=== PATIENT | female | born 1990 | race Caucasian/White ===

== ENCOUNTER 2016-12-22 17:56 | Emergency (ER) | payer SELFPAY ==
[2016-12-22 18:19] VITALS: BP 137/61
--- NOTE | 2016-12-22 18:24 | EDM.PDOC ---
ED HPI GENERAL MEDICAL PROBLEM - General Chief Complaint: Lower Extremity Injury/Pain Stated Complaint: HURT RIGHT ANKLE Time Seen by Provider: 12/22/16 18:17 Source of Information: Reports: Patient, Family (mother) History Limitations: Reports: No Limitations - History of Present Illness INITIAL COMMENTS - FREE TEXT/NARRATIVE: 26-year-old female presents to the ED with an acute inversion injury to her right ankle at occurred about 3:00 this morning. She reports she was under the influence of alcohol the time and was walking across the street to [place] to get a pie. She not exactly sure what happened but she tripped over curb suffering an inversion injury to her right ankle. She can tippytoe weight-bear. There is marked swelling of the lateral malleolus however. Also previously fractured her ankle but has no residual hardware. She scraped up her left knee and has Dmitri contusion to her right elbow as well but no evidence of bony injuries. Onset: Today Onset Date: 12/22/16 Onset Time: 03:00 Duration: Hour(s): Location: Reports: Lower Extremity, Right (right lateral ankle) Quality: Reports: Ache, Throbbing, Other Severity: Moderate Improves with: Reports: Rest ( swelling) Worsens with: Reports: Other, Movement Context: Reports: Other. Denies: Activity, Exercise, Lifting ( weightbearing) Associated Symptoms: Reports: Other ( inversion injury. contusion to the left knee and right elbow. superficial abrasions to these areas) Treatments RUBBER CURER: Reports: NSAIDS Right Ankle Pain Score (Numeric/FACES): 5 - Related Data Allergies Allergy/AdvReac Type Severity Reaction Status Date / Time grass pollen Allergy Itching Verified 12/22/16 18:13 tree and shrub pollen Allergy Itching Verified 12/22/16 18:13 Past Medical History - Past Surgical History Other HEENT Surgeries/Procedures: [place] teeth extraction Social & Family History - Tobacco Use Smoking Status *Q: Current Every Day Smoker Years of Tobacco use: 6 Packs/Tins Daily: 0.5 - Recreational Drug Use Recreational Drug Use: No - Living Situation & Occupation Living situation: Reports: Occupation: Unemployed Review of Systems - Review of Systems Review Of Systems: See Below Constitutional: Reports: No Symptoms Eyes: Reports: No Symptoms Ears: Reports: No Symptoms Nose: Reports: No Symptoms Mouth/Throat: Reports: No Symptoms Respiratory: Reports: No Symptoms Cardiovascular: Reports: No Symptoms GI/Abdominal: Reports: No Symptoms Genitourinary: Reports: No Symptoms Musculoskeletal: Reports: No Symptoms Skin: Reports: No Symptoms Neurological: Reports: No Symptoms Psychiatric: Reports: No Symptoms ED EXAM, GENERAL - Physical Exam Exam: See Below Exam Limited By: No Limitations General Appearance: Alert, WD/WN, No Apparent Distress, Other ( very talkative.) Head: Atraumatic, Normocephalic Neck: Normal Inspection, Supple, Non-Tender, Full Range of Motion Respiratory/Chest: No Respiratory Distress, No Accessory Muscle Use Peripheral Pulses: 2+: Posterior Tibial (L), Posterior Tibial (R), Dorsalis Pedis (L), Dorsalis Pedis (R) Back Exam: Normal Inspection, Full Range of Motion. No: CVA Tenderness (L), CVA Tenderness (R) Extremities: Other ( patient has a superficial abrasion to her right elbow just proximal to the olecranon process but has full unopposed range of motion of the elbow joint. similarly she suffered superficial abrasions over her left patella but there is normal patellofemoral movement and no true effusion in the knee joint. right ankle reveals marked swelling over the lateral malleolus and some pain to palpation over the no pain of the proximal femur on confirm compression. ) Neurological: Alert, Oriented, CN II-XII Intact, Normal Cognition Psychiatric: Normal Affect, Normal Mood Skin Exam: Warm, Dry, Intact, Normal Color, No Rash Course - Vital Signs Last Recorded V/S: Last Vital Signs Temp 36.6 C 12/22/16 18:13 Pulse 85 12/22/16 18:13 Resp 18 12/22/16 18:13 BP 137/61 12/22/16 18:13 Pulse Ox 99 12/22/16 18:13 - Orders/Labs/Meds Orders: Active Orders 24 hr Category Date Time Status Ankle Min 3V Rt [CR] Stat Exams 12/22/16 18:17 Taken Foot Comp Min 3V Rt [CR] Stat Exams 12/22/16 18:23 Taken - Radiology Interpretation Free Text/Narrative:: 26-year-old female attends the ED due to an inversion injury to sustained to her right ankle about 3:00 this morning. not exactly sure how it happened but she believes she tripped over a curb. She was under the influence of alcohol the time. exam reveals marked swelling of the lateral malleolus and lateral dorsal foot. there is pain over the fifth metatarsal head as well. no evidence of medial ligament injuries. pPan x-ray Rt ankle and foot - Re-Assessments/Exams Free Text/Narrative Re-Assessment/Exam: 12/22/16 18:53 x-rays of the right foot are normal. X-rays of the left ankle suggest an old fracture of the tip of the fibula. but I do not see any new fractures. therefore patient will be placed in an Dmitri wrap and a stirrup foot splint similar to an Aircast splint. this way she will can get around without crutches. Motrin 600 mg every 6 hours no safe for pain relief. ice pack to the area one half hour out of every 4 hours today and tomorrow. Departure - Departure Time of Disposition: 18:54 Disposition: Home, Self-Care 01 Condition: Fair Clinical Impression: Sprain of calcaneofibular ligament of right ankle Qualifiers: Encounter type: initial encounter Qualified Code(s): S93.411A - Sprain of calcaneofibular ligament of right ankle, initial encounter - Discharge Information Referrals: PCP,None [Primary Care Provider] - Forms: ED Department Discharge Additional Instructions: Evaluation the emergency room this evening due to an inversion injury to her right ankle at occurred earlier this morning. swelling over the distal lateral malleolus and ankle ligaments evident. x-rays of the ankle and foot were therefore carried out to rule out any bony injuries and no bony injuries were identified. injuries are to the lateral ankle ligaments. he suffered superficial abrasions to her anterior left knee and right elbow. These wounds should be cleansed daily with topical antibiotic placed such as bacitracin or Polysporin for 2-3 days to prevent secondary wound infection. Ankle to be treated with Dmitri wrap on during the day and off at night. Ice pack to the area for one half hour out of every 4 hours today and tomorrow. Placed in a stirrup brace to facilitate walking and advise use for the next 10-12 days. Motrin 600 mg every 6 hours as needed for pain relief. expect symptoms to resolve over the next 12-14 days. - My Orders Last 24 Hours: My Active Orders 12/22/16 18:17 Ankle Min 3V Rt [CR] Stat 12/22/16 18:23 Foot Comp Min 3V Rt [CR] Stat - Assessment/Plan Last 24 Hours: My Active Orders 12/22/16 18:17 Ankle Min 3V Rt [CR] Stat 12/22/16 18:23 Foot Comp Min 3V Rt [CR] Stat
--- NOTE | 2016-12-23 17:59 | CR ---
Right ankle: Four views of the right ankle were obtained. Well corticated bony density is seen off the inferior fibula compatible with old ununited fracture. Ankle mortise is symmetric. No acute fracture or other abnormality is appreciated. Impression: 1. Old fracture off the inferior fibula. 2. Nothing acute is identified on right ankle exam. Diagnostic code #2
--- NOTE | 2016-12-23 17:59 | CR ---
Right foot: Four views of the right foot were obtained. Comparison: No previous foot exam. Well-corticated bony density is again noted off the inferior fibula which was described on ankle exam. Joint spaces within the right foot are preserved. No acute fracture, dislocation or other bony abnormality is appreciated. Impression: 1. Finding off the inferior fibula described on ankle exam. 2. Right foot study is otherwise unremarkable. Diagnostic code #2
== END 2016-12-22 19:05 | disposition home or self-care (01) ==
LOC: JD.ED 17:56
DX: S93.411A Sprain of calcaneofibular ligament of right ankle, initial encounter (principal); S50.311A Abrasion of right elbow, initial encounter; S80.212A Abrasion, left knee, initial encounter; F17.210 Nicotine dependence, cigarettes, uncomplicated; X50.0XXA Overexertion from strenuous movement or load, initial encounter
CPT/HCPCS: 73610-26-RT; 73610-RT; 73630-26-RT; 73630-RT; 99283

== ENCOUNTER 2017-01-05 14:16 | Emergency (ER) | payer SELFPAY ==
[2017-01-05 14:52] VITALS: BP 108/71
[2017-01-05] MEDS ORDERED: Amoxicillin 500 MG Cap PO ONE (16:41)
[2017-01-05] MEDS ORDERED: Albuterol 6.7 GM Inhaler INH ONE (16:41)
--- NOTE | 2017-01-05 16:42 | EDM.PDOC ---
ED HPI GENERAL MEDICAL PROBLEM - General Chief Complaint: Respiratory Problem Stated Complaint: Cough Time Seen by Provider: 01/05/17 16:00 Source of Information: Reports: Patient, RN Notes Reviewed History Limitations: Reports: No Limitations - History of Present Illness INITIAL COMMENTS - FREE TEXT/NARRATIVE: 26 year old female presents to the ED with complaints of non-productive cough, runny nose, sore throat, and ear pain for the past 3 days. Her cough is dry and frequent. She denies change in voice or difficulty swallowing. She's taken ibuprofen for pain. She has a history of seasonal allergies. She denies fever, chest pain, shortness of breath, nausea, vomiting, diarrhea or abdominal pain. Chest Pain Score (Numeric/FACES): 5 - Related Data Allergies Allergy/AdvReac Type Severity Reaction Status Date / Time grass pollen Allergy Itching Verified 01/05/17 14:49 tree and shrub pollen Allergy Itching Verified 01/05/17 14:49 Home Meds: Home Meds Amoxicillin 500 mg PO BID #20 capsule 01/05/17 [Rx] Past Medical History Musculoskeletal History: Reports: Other (See Below) Other Musculoskeletal History: right ankle fracture twice - Past Surgical History Other HEENT Surgeries/Procedures: [place] teeth extraction Social & Family History - Tobacco Use Smoking Status *Q: Current Every Day Smoker Years of Tobacco use: 6 Packs/Tins Daily: 0.5 - Caffeine Use Caffeine Use: Reports: Coffee, Energy Drinks, Soda - Recreational Drug Use Recreational Drug Use: No Drug Use in Last 12 Months: Yes Recreational Drug Type: Reports: Marijuana/Hashish, Methamphetamine Other Recreational Drug Type: currently 54 days sober from drug use - Living Situation & Occupation Living situation: Reports: Occupation: Unemployed ED ROS GENERAL - Review of Systems Review Of Systems: See Below Constitutional: Reports: No Symptoms. Denies: Fever, Chills, Diaphoresis HEENT: Reports: Ear Pain, Rhinitis, Sinus Problem, Throat Pain Respiratory: Reports: Cough. Denies: Shortness of Breath, Wheezing Cardiovascular: Reports: No Symptoms. Denies: Chest Pain GI/Abdominal: Reports: No Symptoms. Denies: Abdominal Pain, Diarrhea, Nausea, Vomiting Skin: Reports: No Symptoms. Denies: Rash ED EXAM, GENERAL - Physical Exam Exam: See Below Exam Limited By: No Limitations General Appearance: Alert, WD/WN, No Apparent Distress Ear Exam: Bilateral Ear: Auricle Normal, Canal Normal, TM Dull, TM Red Nose: Normal Inspection, Normal Mucosa Throat/Mouth: Normal Inspection, Normal Oropharynx, No Airway Compromise, Other (no tonsillar erythema or exudates ) Head: Atraumatic, Normocephalic Neck: Normal Inspection, Supple, Non-Tender, Full Range of Motion. No: Lymphadenopathy (L), Lymphadenopathy (R) Respiratory/Chest: No Respiratory Distress, Lungs Clear, Normal Breath Sounds, No Accessory Muscle Use, Wheezing (right lower lobe ), Other (harsh, frequent dry cough ) Cardiovascular: Normal Peripheral Pulses, Regular Rate, Rhythm, No Murmur GI/Abdominal: Normal Bowel Sounds, Soft, Non-Tender, No Distention Neurological: Alert, Oriented, Normal Cognition Skin Exam: Warm, Dry, Intact Course - Vital Signs Last Recorded V/S: Last Vital Signs Temp 98.2 F 01/05/17 14:49 Pulse 96 01/05/17 14:49 Resp 18 01/05/17 14:49 BP 108/71 01/05/17 14:49 Pulse Ox 96 01/05/17 14:49 - Orders/Labs/Meds Orders: Active Orders 24 hr Category Date Time Status RT Post Treatment Assessment [RC] Click to Edit Care 01/05/17 16:41 Active RT Pre-Treatment Assessment [RC] Click to Edit Care 01/05/17 16:41 Active Meds: Medications Discontinued Medications Generic Name Dose Route Start Last Admin Trade Name Brian PRN Reason Stop Dose Admin Albuterol 1 gm 01/05/17 16:41 01/05/17 16:57 Proventil Hfa INH 01/05/17 16:42 2 puff ONETIME ONE Administration Amoxicillin 500 mg 01/05/17 16:41 01/05/17 16:51 Amoxil PO 01/05/17 16:42 500 mg ONETIME ONE Administration - Re-Assessments/Exams Free Text/Narrative Re-Assessment/Exam: Patient has bilateral AOM. Will start her on amoxicillin 500mg PO BID. She also has URI with scant amount of wheezing in her right lobe which cleared with coughing. Will also prescribe her an albuterol inhaler. Discharge instructions as documented. Departure - Departure Time of Disposition: 17:14 Disposition: Home, Self-Care 01 Condition: Good Clinical Impression: Otitis media Qualifiers: Otitis media type: unspecified Chronicity: acute Upper respiratory infection Qualifiers: URI type: unspecified URI Qualified Code(s): J06.9 - Acute upper respiratory infection, unspecified - Discharge Information Prescriptions: Amoxicillin 500 mg PO BID #20 capsule Instructions: Otitis Media, Adult, [id number], Upper Respiratory Infection, Adult, [id number] Referrals: PCP,None [Primary Care Provider] - Forms: ED Department Discharge Additional Instructions: Amoxicillin 500mg twice a day for 10 days Start probiotic Tylenol or Motrin as needed for pain Albuterol inhaler for shortness of breath or cough Stay well hydrated Follow-up in clinic if not improved in 3-4 days - My Orders Last 24 Hours: My Active Orders 01/05/17 16:41 RT Post Treatment Assessment [RC] Click to Edit RT Pre-Treatment Assessment [RC] Click to Edit - Assessment/Plan Last 24 Hours: My Active Orders 01/05/17 16:41 RT Post Treatment Assessment [RC] Click to Edit RT Pre-Treatment Assessment [RC] Click to Edit
== END 2017-01-05 17:20 | disposition home or self-care (01) ==
LOC: JD.ED 14:16
DX: H66.93 Otitis media, unspecified, bilateral (principal); J06.9 Acute upper respiratory infection, unspecified; F17.210 Nicotine dependence, cigarettes, uncomplicated; Z91.09 Other allergy status, other than to drugs and biological substances
CPT/HCPCS: 94664; 99283; A9270

== ENCOUNTER 2017-03-13 10:01 | Emergency (ER) | payer SELFPAY ==
[2017-03-13] MEDS ORDERED: Ibuprofen 800 MG Tab PO ONE (11:08)
[2017-03-13] MEDS ORDERED: Acetaminophen Susp 325 MG/10.15 ML UD Cup PO ONE (11:08)
--- NOTE | 2017-03-13 11:11 | EDM.PDOC ---
ED HPI GENERAL MEDICAL PROBLEM - General Chief Complaint: Lower Extremity Injury/Pain Stated Complaint: R ANKLE INJURY Time Seen by Provider: 03/13/17 10:39 Source of Information: Reports: Patient History Limitations: Reports: No Limitations - History of Present Illness INITIAL COMMENTS - FREE TEXT/NARRATIVE: 27 y/o F with R ankle injury. Stepped in a hole last evening when she went outside to smoke. Pain was still severe this morning so she came in for eval. Has pain in R outer ankle area. Sharp, worse with ambulation, better with rest. Hasn't taken anything for pain this morning. No additional injury. No knee pain. Able to ambulate. Right Ankle Pain Score (Numeric/FACES): 7 - Related Data Allergies Allergy/AdvReac Type Severity Reaction Status Date / Time grass pollen Allergy Itching Verified 03/13/17 10:25 Latex, Natural Rubber Allergy Itching Verified 03/13/17 10:45 tree and shrub pollen Allergy Itching Verified 03/13/17 10:25 Home Meds: Home Meds Hydrocodone/Acetaminophen [Hydrocodon-Acetaminophen 5-325] 1 each PO QID PRN #8 tablet 03/13/17 [Rx] Ibuprofen 800 mg PO TID PRN #40 tablet 03/13/17 [Rx] Venlafaxine [Effexor] 75 mg PO DAILY 03/13/17 [History] cloNIDine [Catapres] 0.1 mg PO BEDTIME 03/13/17 [History] hydrOXYzine HCl [Atarax] 50 mg PO Q6H PRN 03/13/17 [History] Past Medical History HEENT History: Reports: Impaired Vision Other HEENT History: wears eyeglasses. Respiratory History: Reports: Bronchitis, Recurrent Genitourinary History: Reports: UTI, Recurrent [employer]LECT[employer]CH[employer]ICIAN History: Reports: Musculoskeletal History: Reports: Other (See Below) Other Musculoskeletal History: right ankle fracture twice, L) ankle fx. Neurological History: Reports: Migraines Psychiatric History: Reports: Addiction, Anxiety, Depression - Infectious Disease History Infectious Disease History: Reports: Chicken Pox - Past Surgical History HEENT Surgical History: Reports: Tonsillectomy Other HEENT Surgeries/Procedures: [place] teeth extraction Female Surgical History: Reports: Section Social & Family History - Tobacco Use Smoking Status *Q: Current Every Day Smoker Years of Tobacco use: 10 Packs/Tins Daily: 0.5 Second Hand Smoke Exposure: No - Caffeine Use Caffeine Use: Reports: Energy Drinks - Alcohol Use Days Per Week of Alcohol Use: 1 Number of Drinks Per Day: 5 Total Drinks Per Week: 5 - Recreational Drug Use Recreational Drug Use: Yes Drug Use in Last 12 Months: Yes Recreational Drug Type: Reports: Marijuana/Hashish, Methamphetamine Other Recreational Drug Type: 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 - Living Situation & Occupation Living situation: Reports: Occupation: Unemployed Review of Systems - Review of Systems Review Of Systems: See Below Constitutional: Reports: No Symptoms Musculoskeletal: Reports: Leg Pain Skin: Denies: Wound ED EXAM, GENERAL - Physical Exam Exam: See Below Exam Limited By: No Limitations General Appearance: Alert, WD/WN, No Apparent Distress Eye Exam: Bilateral Eye: Normal Inspection Ears: Normal External Exam Nose: Normal Inspection Throat/Mouth: Normal Inspection, Normal Oropharynx Head: Atraumatic, Normocephalic Neck: Normal Inspection Respiratory/Chest: No Respiratory Distress Cardiovascular: Normal Peripheral Pulses Extremities: Other (RLE: no knee TTP or abnoramlity. No tib/fib TTP. R ankle has no effusion. +lat malleolus TTP. No bruising.No additional foot TTP or other abnormality. 2+DP pulse. Distal motor/sensation/perfusion intact.) Course - Vital Signs Last Recorded V/S: Last Vital Signs Temp 37.0 C 03/13/17 10:33 Pulse 96 03/13/17 12:10 Resp 16 03/13/17 12:10 BP 99/65 03/13/17 12:10 Pulse Ox 97 03/13/17 12:10 - Orders/Labs/Meds Orders: Active Orders 24 hr Category Date Time Status Splinting [RC] ASDIRECTED Care 03/13/17 11:48 Active Ankle Min 3V Rt [CR] Stat Exams 03/13/17 11:08 Taken Meds: Medications Discontinued Medications Generic Name Dose Route Start Last Admin Trade Name Brian PRN Reason Stop Dose Admin Acetaminophen 650 mg 03/13/17 11:08 03/13/17 11:24 Tylenol Solution PO 03/13/17 11:09 650 mg ONETIME ONE Administration Ibuprofen 800 mg 03/13/17 11:08 03/13/17 11:24 Motrin PO 03/13/17 11:09 800 mg ONETIME ONE Administration - Re-Assessments/Exams Free Text/Narrative Re-Assessment/Exam: 03/13/17 13:24 XR R ankle shows no acute abnormality. Likely sprain. Given velcro ankle splint. She has crutches at home. Departure - Departure Time of Disposition: 11:48 Disposition: Home, Self-Care 01 Clinical Impression: Ankle sprain Qualifiers: Encounter type: initial encounter Involved ligament of ankle: unspecified ligament Laterality: right Qualified Code(s): S93.401A - Sprain of unspecified ligament of right ankle, initial encounter - Discharge Information Prescriptions: Hydrocodone/Acetaminophen [Hydrocodon-Acetaminophen 5-325] 1 each PO QID PRN #8 tablet PRN Reason: Pain Ibuprofen 800 mg PO TID PRN #40 tablet PRN Reason: Pain Instructions: Ankle Sprain, [id number] Referrals: Maribell Santiago MD [Primary Care Provider] - Forms: ED Department Discharge Additional Instructions: 1. Keep ankle elevated as much as possible today and tomorrow 2. Use crutches until you can walk without significant pain or limping 3. Take ibuprofen and acetaminophen (Tylenol) for pain. Take acetaminophen according to bottle instructions. OK to take these two meds together - they work and are cleared by the body in different ways. 4. Take hydrocodone as needed for severe pain. Do not drive or operate heavy machinery while taking this medication - it may make you drowsy or confused. Take the least amount possible, and only take for severe pain. 5. Follow up with a primary doctor or orthopedics of your choice for further care if your ankle isn't much better by next week. Call [phone] to schedule with a provider here. - My Orders Last 24 Hours: My Active Orders 03/13/17 11:08 Ankle Min 3V Rt [CR] Stat 03/13/17 11:48 Splinting [RC] ASDIRECTED - Assessment/Plan Last 24 Hours: My Active Orders 03/13/17 11:08 Ankle Min 3V Rt [CR] Stat 03/13/17 11:48 Splinting [RC] ASDIRECTED
[2017-03-13 12:19] VITALS: BP 99/65
--- NOTE | 2017-03-17 10:17 | CR ---
Right ankle: Four views of the right ankle were obtained. Comparison: Prior right ankle study of 12/22/16. Ankle mortise is symmetric. Bony density compatible with old injury seen off the inferior fibula. This is stable from prior exam. No additional fracture or other bony abnormality is seen. Impression: 1. Old injury off the inferior fibula. 2. Right ankle exam is otherwise unremarkable. Diagnostic code #2
== END 2017-03-13 12:15 | disposition home or self-care (01) ==
LOC: SUPCPDRO 10:01 → JD.ED 10:01
DX: S93.401A Sprain of unspecified ligament of right ankle, initial encounter (principal); F17.210 Nicotine dependence, cigarettes, uncomplicated; Z91.040 Latex allergy status; Z91.048 Other nonmedicinal substance allergy status; Z79.899 Other long term (current) drug therapy; Z87.440 Personal history of urinary (tract) infections; X50.9XXA Other and unspecified overexertion or strenuous movements or postures, initial encounter
CPT/HCPCS: 73610; 99284; A9270; 99283

== ENCOUNTER 2018-05-06 06:35 | Emergency (ER) | payer SELFPAY ==
[2018-05-06] MEDS ORDERED: Sodium Chloride 0.9% 1,000 ML IV ONE (06:47)
[2018-05-06] MEDS ORDERED: HYDROmorphone 1 MG/ML Syringe IVPUSH ONE ×2 (06:58→07:36)
--- NOTE | 2018-05-06 07:19 | EDM.PDOC ---
ED HPI GENERAL MEDICAL PROBLEM - General Chief Complaint: Abdominal Pain Stated Complaint: ABDOMINAL PAIN AND BACK PAIN Time Seen by Provider: 05/06/18 06:53 Source of Information: Reports: Patient History Limitations: Reports: No Limitations - History of Present Illness INITIAL COMMENTS - FREE TEXT/NARRATIVE: The patient presents with severe lower abdominal pain radiating to her back. She says yesterday she had a positive home test. She then developed mild lower abdominal pain last night. This morning about 2 hours before arrival she developed severe 10/10 lower abdominal pain radiating to her back. She has some mild vaginal bleeding. She has had multiple pregnancies. She is AB4. She is unsure of her LNMP. She has hermann irregular periods. She has never had an ectopic before. She is screaming and rolling on the bed. She denies fever, chills, cough, chest pain, nausea, vomiting, dysuria or diarrhea. Onset: Sudden Duration: Hour(s): (2) Location: Reports: Abdomen, Back Quality: Reports: Sharp Severity: Severe Improves with: Reports: None Worsens with: Reports: None Associated Symptoms: Reports: No Other Symptoms Middle Abdomen Pain Score (Numeric/FACES): 10 - Related Data Allergies Allergy/AdvReac Type Severity Reaction Status Date / Time grass pollen Allergy Itching Verified 03/13/17 10:25 Latex, Natural Rubber Allergy Itching Verified 03/13/17 10:45 tree and shrub pollen Allergy Itching Verified 03/13/17 10:25 Home Meds: Home Meds Hydrocodone/Acetaminophen [Hydrocodon-Acetaminophen 5-325] 1 each PO QID PRN #8 tablet 03/13/17 [Rx] Ibuprofen 800 mg PO TID PRN #40 tablet 03/13/17 [Rx] Venlafaxine [Effexor] 75 mg PO DAILY 03/13/17 [History] cloNIDine [Catapres] 0.1 mg PO BEDTIME 03/13/17 [History] hydrOXYzine HCl [Atarax] 50 mg PO Q6H PRN 03/13/17 [History] Hydrocodone/Acetaminophen [Hydrocodon-Acetaminophen 5-325] 1 - 2 each PO Q6HR PRN #20 tablet 05/06/18 [Rx] Past Medical History HEENT History: Reports: Impaired Vision Other HEENT History: wears eyeglasses. 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 Neurological History: Reports: Migraines Psychiatric History: Reports: Addiction, Anxiety, Depression - Infectious Disease History Infectious Disease History: Reports: Chicken Pox - Past Surgical History HEENT Surgical History: Reports: Tonsillectomy Other HEENT Surgeries/Procedures: [place] teeth extraction Female Surgical History: Reports: Section Social & Family History - Tobacco Use Smoking Status *Q: Current Every Day Smoker Years of Tobacco use: 10 Packs/Tins Daily: 1 - Caffeine Use Caffeine Use: Reports: None - Recreational Drug Use Recreational Drug Use: No - Living Situation & Occupation Living situation: Reports: Occupation: Unemployed ED ROS GENERAL - Review of Systems Review Of Systems: See Below Constitutional: Reports: No Symptoms HEENT: Reports: No Symptoms Respiratory: Reports: No Symptoms Cardiovascular: Reports: No Symptoms Endocrine: Reports: No Symptoms GI/Abdominal: Reports: Abdominal Pain. Denies: Diarrhea, Nausea, Vomiting : Reports: Other (Mild vaginal bleeding) Musculoskeletal: Reports: Back Pain ED EXAM, GI/ABD - Physical Exam Exam: See Below Exam Limited By: No Limitations General Appearance: Alert, Severe Distress Ears: Normal External Exam Nose: Normal Inspection Head: Atraumatic, Normocephalic Neck: Normal Inspection Respiratory/Chest: No Respiratory Distress, Lungs Clear, Normal Breath Sounds Cardiovascular: Regular Rate, Rhythm, No Edema, No Murmur GI/Abdominal Exam: Soft, No Organomegaly, No Mass, Tender (Moderate to severe pain to the lower abdomen) Back Exam: Other (Moderate tenderness to the lower back) Extremities: Normal Inspection Neurological: Alert, Oriented, No Motor/Sensory Deficits Course - Vital Signs Last Recorded V/S: Last Vital Signs Temp 97.4 F 05/06/18 06:47 Pulse 74 05/06/18 08:12 Resp 16 05/06/18 08:12 BP 122/74 05/06/18 08:12 Pulse Ox 100 05/06/18 08:12 - Orders/Labs/Meds Orders: Active Orders 24 hr Category Date Time Status PATIENT RETYPE [BBK] Stat Lab 05/06/18 06:54 Results TYPE AND SCREEN [BBK] Stat Lab 05/06/18 06:54 Results UA W/MICROSCOPIC [URIN] Stat Lab 05/06/18 07:21 Stop Req Sodium Chloride 0.9% [Normal Saline] 1,000 ml Med 05/06/18 06:47 Active IV ONETIME Medication Orders Sodium Chloride (Normal Saline) 1,000 mls @ 150 mls/hr IV ONETIME ONE Stop: 05/06/18 13:26 Last Admin: 05/06/18 07:05 Dose: 150 mls/hr Labs: Laboratory Tests 05/06/18 05/06/18 05/06/18 Range/Units 06:54 06:54 06:54 WBC 14.46 H (3.98-10.04) K/mm3 RBC 4.22 (3.98-5.22) M/mm3 Hgb 12.9 (11.2-15.7) gm/L Hct 36.5 (34.1-44.9) % MCV 86.5 (79.4-94.8) fl MCH 30.6 (25.6-32.2) pg MCHC 35.3 (32.2-35.5) g/dl RDW Std Deviation 41.1 (36.4-46.3) fL Plt Count 341 (182-369) K/mm3 MPV 9.0 L (9.4-12.3) fl Neutrophils % (Manual) 74 H (40-60) % Band Neutrophils % 2 (0-10) % Lymphocytes % (Manual) 13 L (20-40) % Atypical Lymphs % 0 % Monocytes % (Manual) 7 (2-10) % Eosinophils % (Manual) 3 (0.7-5.8) % Basophils % (Manual) 1 (0.1-1.2) Platelet Estimate Adequate RBC Morph Comment Normal Sodium 141 (136-145) mEq/L Potassium 3.1 L (3.5-5.1) mEq/L Chloride 105 (98-107) mEq/L Carbon Dioxide 24 (21-32) mEq/L Anion Gap 15.1 H (5-15) BUN 11 (7-18) mg/dL Creatinine 0.9 (0.55-1.02) mg/dL Est Cr Clr Drug Dosing 3.46 mL/min Estimated GFR (MDRD) > 60 (>60) mL/min BUN/Creatinine Ratio 12.2 L (14-18) Glucose 120 H (74-106) mg/dL Calcium 8.9 (8.5-10.1) mg/dL Total Bilirubin 0.2 (0.2-1.0) mg/dL AST 18 (15-37) U/L ALT 26 (14-59) U/L Alkaline Phosphatase 79 (46-116) U/L C-Reactive Protein 3.0 H* (<1.0) mg/dL Total Protein 6.8 (6.4-8.2) g/dl Albumin 3.3 L (3.4-5.0) g/dl Globulin 3.5 gm/dL Albumin/Globulin Ratio 0.9 L (1-2) Lipase 125 (73-393) U/L HCG, Quant 3003.0 mIU/mL Blood Type Gel Antibody Screen 05/06/18 Range/Units 06:54 WBC (3.98-10.04) K/mm3 RBC (3.98-5.22) M/mm3 Hgb (11.2-15.7) gm/L Hct (34.1-44.9) % MCV (79.4-94.8) fl MCH (25.6-32.2) pg MCHC (32.2-35.5) g/dl RDW Std Deviation (36.4-46.3) fL Plt Count (182-369) K/mm3 MPV (9.4-12.3) fl Neutrophils % (Manual) (40-60) % Band Neutrophils % (0-10) % Lymphocytes % (Manual) (20-40) % Atypical Lymphs % % Monocytes % (Manual) (2-10) % Eosinophils % (Manual) (0.7-5.8) % Basophils % (Manual) (0.1-1.2) Platelet Estimate RBC Morph Comment Sodium (136-145) mEq/L Potassium (3.5-5.1) mEq/L Chloride (98-107) mEq/L Carbon Dioxide (21-32) mEq/L Anion Gap (5-15) BUN (7-18) mg/dL Creatinine (0.55-1.02) mg/dL Est Cr Clr Drug Dosing mL/min Estimated GFR (MDRD) (>60) mL/min BUN/Creatinine Ratio (14-18) Glucose (74-106) mg/dL Calcium (8.5-10.1) mg/dL Total Bilirubin (0.2-1.0) mg/dL AST (15-37) U/L ALT (14-59) U/L Alkaline Phosphatase (46-116) U/L C-Reactive Protein (<1.0) mg/dL Total Protein (6.4-8.2) g/dl Albumin (3.4-5.0) g/dl Globulin gm/dL Albumin/Globulin Ratio (1-2) Lipase (73-393) U/L HCG, Quant mIU/mL Blood Type B POSITIVE Gel Antibody Screen Negative Meds: Medications Generic Name Dose Route Start Last Admin Trade Name Freq PRN Reason Stop Dose Admin Sodium Chloride 1,000 mls @ 150 mls/hr 05/06/18 06:47 05/06/18 07:05 Normal Saline IV 05/06/18 13:26 150 mls/hr ONETIME ONE Administration Discontinued Medications Generic Name Dose Route Start Last Admin Trade Name Freq PRN Reason Stop Dose Admin Hydromorphone HCl 1 mg 05/06/18 06:58 05/06/18 07:05 Dilaudid IVPUSH 05/06/18 06:59 1 mg ONETIME ONE Administration Hydromorphone HCl 1 mg 05/06/18 07:36 05/06/18 08:13 Dilaudid IVPUSH 05/06/18 07:37 1 mg ONETIME ONE Administration - Re-Assessments/Exams Free Text/Narrative Re-Assessment/Exam: 05/06/18 07:20 I ordered an IV NS 1L bolus, dilaudid 1mg IV, labs, UA and a transvaginal OB US. 05/06/18 09:52 Her WBC was elevated at 14.46. Her K was low at 3.1. Her anion gap was elevated at 15.4. Her glucose was elevated at 120. Her CRP is elevated at 3. Her lipase is normal. Her HCG is elevated at 3003. Her US shows echogenic material within the endometrial cavity most likely representing blood. No intrauterine gestational sac is seen. If patient has positive test, findings are suspicious for miscarriage. Please correlate that patient's beta- HCG decreases as expected fro miscarriage. 2.2cm hypoechoic area within the right ovary which is felt to be physiologic. She feels much better after another dose of dilaudid. I will have her follow up with Dr Peters. 05/06/18 10:07 The patient is B positive. Departure - Departure Time of Disposition: 10:10 Disposition: Home, Self-Care 01 Condition: Good Clinical Impression: Spontaneous - Discharge Information *PRESCRIPTION DRUG MONITORING PROGRAM REVIEWED*: No *COPY OF PRESCRIPTION DRUG MONITORING REPORT IN PATIENT RUBEN: No Prescriptions: Hydrocodone/Acetaminophen [Hydrocodon-Acetaminophen 5-325] 1 - 2 each PO Q6HR PRN #20 tablet PRN Reason: Pain Referrals: PCP,None [Primary Care Provider] - Lia Peters MD [Physician] - 1 Week Forms: ED Department Discharge Additional Instructions: Take the hydrocodone as needed for pain. Follow up with Dr Peters within a week. Please return if the pain gets worse or if you are soaking more then a pad an hour. - My Orders Last 24 Hours: My Active Orders 05/06/18 06:47 Sodium Chloride 0.9% [Normal Saline] 1,000 ml IV ONETIME 05/06/18 06:54 PATIENT RETYPE [BBK] Stat TYPE AND SCREEN [BBK] Stat 05/06/18 07:21 UA W/MICROSCOPIC [URIN] Stat - Assessment/Plan Last 24 Hours: My Active Orders 05/06/18 06:47 Sodium Chloride 0.9% [Normal Saline] 1,000 ml IV ONETIME 05/06/18 06:54 PATIENT RETYPE [BBK] Stat TYPE AND SCREEN [BBK] Stat 05/06/18 07:21 UA W/MICROSCOPIC [URIN] Stat
[2018-05-06 08:12] VITALS: BP 122/74
--- NOTE | 2018-05-06 09:20 | US ---
First trimester obstetrical ultrasound: Multiple real-time images were obtained transabdominally and transvaginally. Uterus is slightly retroverted. Echogenic material is seen within the endometrial cavity most likely representing blood. No gestational sac is seen. Small hypoechoic area is noted within the right ovary measuring 2.2 cm which is felt to be physiologic. No adnexal abnormalities are appreciated. No free fluid is seen. Impression: 1. Echogenic material within the endometrial cavity most likely representing blood. No intrauterine gestational sac is seen. If patient has positive test, findings are suspicious for miscarriage. Please correlate that patient's beta-hCG decreases as expected for miscarriage. 2. 2.2 cm hypoechoic area within the right ovary which is felt to be physiologic. Diagnostic code #3
== END 2018-05-06 10:19 | disposition home or self-care (01) ==
LOC: JD.ED 06:35
DX: O03.9 Complete or unspecified spontaneous abortion without complication (principal); F32.9 Major depressive disorder, single episode, unspecified; F41.9 Anxiety disorder, unspecified; F17.200 Nicotine dependence, unspecified, uncomplicated; Z87.440 Personal history of urinary (tract) infections; Z90.89 Acquired absence of other organs; Z98.890 Other specified postprocedural states
CPT/HCPCS: 36415; 76817; 80053; 83690; 84702; 85007; 85027; 86140; 86850; 86900; 86901; 96361; 96374; 96376; 99284; J1170; J7040

== ENCOUNTER 2020-02-13 01:04 | Emergency (ER) | payer SELFPAY ==
[2020-02-13 01:19] VITALS: BP 134/71; PULSE 85
[2020-02-13] MEDS ORDERED: Penicillin V Potassium 500 MG Tab PO STA (01:38)
[2020-02-13] MEDS ORDERED: Naproxen 500 MG Tab PO STA (01:39)
--- NOTE | 2020-02-13 01:44 | EDM.PDOC ---
ED HPI GENERAL MEDICAL PROBLEM - General Chief Complaint: ENT Problem Stated Complaint: TOOTH PAIN AND THROWING UP Time Seen by Provider: 02/13/20 01:15 Source of Information: Reports: Patient History Limitations: Reports: No Limitations - History of Present Illness INITIAL COMMENTS - FREE TEXT/NARRATIVE: Ms. Fowler is a 30-year-old woman who now presents to the ED with dental pain. 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 She states that while her teeth were not painful, she felt they were unsightly, therefore she has been applying "Instant Smile" - essentially a putty or glue - for the past year, to help improve the appearance. No recent fever. No recent oral drainage. The patient states that she has been taking Tylenol and ibuprofen for her discomfort. She states that she last saw a Dentist about 1 year ago. Here in the ED, the patient is found to be hemodynamically stable, afebrile, saturating 94% on room air. Other than her dental pain, the patient denies having a recent fever, chills, sore throat, ear pain, nasal or sinus congestion, cough, dyspnea, chest pain, palpitations, nausea, vomiting, constipation, diarrhea, abdominal pain, urinary symptoms, recent weight gain or weight loss, recent bloody bowel movements or black bowel movements, recent joint aches, headaches, or rashes. The patient does not have a PCP or a Dentist. Treatments DEPORTATION OFFICER: Reports: Acetaminophen Other Treatments DEPORTATION OFFICER: 2129 Tooth/Teeth Pain Score (Numeric/FACES): 4 - Related Data Allergies Allergy/AdvReac Type Severity Reaction Status Date / Time grass pollen Allergy Itching Verified 02/13/20 01:20 Latex, Natural Rubber Allergy Itching Verified 02/13/20 01:20 tree and shrub pollen Allergy Itching Verified 02/13/20 01:20 Home Meds: Home Meds . [No Known Home Meds] 02/13/20 [History] Past Medical History HEENT History: Reports: Impaired Vision (wears glasses) Musculoskeletal History: Reports: Fracture (bilateral ankles) Psychiatric History: Reports: Addiction (methamphetamine), Anxiety (untreated), Depression (untreated) - Infectious Disease History Infectious Disease History: Reports: Chicken Pox - Past Surgical History HEENT Surgical History: Reports: Adenoidectomy, Oral Surgery (dental extractions), Tonsillectomy Female Surgical History: Reports: Section (x 1) Social & Family History - Family History Family Medical History: Noncontributory - Tobacco Use Tobacco Use Status *Q: Current Every Day Tobacco User Years of Tobacco use: 18 Packs/Tins Daily: 0.5 Packs/Tins Daily Comment: Down from 1 ppd - Caffeine Use Caffeine Use: Reports: Coffee, Energy Drinks, Soda - Alcohol Use Alcohol Use History: Yes Alcohol Use Frequency: Socially (occasionally to excess) - Recreational Drug Use Recreational Drug Use: Yes Drug Use in Last 12 Months: No Recreational Drug Type: Reports: Marijuana/Hashish (last smoked 03/12/2018), Methamphetamine (last smoked 03/12/2018) - Living Situation & Occupation Living situation: Reports: (), with Significant Other (Boyfriend), with Family (10 yr old daughter) Occupation: Employed ([email or web address]) ED ROS ENT - Review of Systems Review Of Systems: Comprehensive ROS is negative, except as noted in HPI. ED EXAM, ENT - Physical Exam Exam: See Below Exam Limited By: No Limitations General Appearance: Alert, WD/WN, No Apparent Distress Eye Exam: Bilateral Eye: EOMI, Normal Inspection Ears: Normal External Exam, Normal Canal, Hearing Grossly Normal, Normal TMs Nose: Normal Inspection, Normal Mucousa, No Blood Mouth/Throat: Normal Lips, Normal Oropharynx, Other (Teeth #1, 2 absent. Tooth #3 with medial decay and an amalgam filling. Tooth #4 with anterolateral decay. Tooth #7 (the tooth of concern) decayed to the gingiva, with surrounding gingival inflammation. No pointing. Teeth numbers 8, 9 glued together. Tooth #13, 14 with amalgam fillings. Tooth #15, 16 absent. Tooth #17, 18, 19, 20 absent. Tooth #30, 31, 32 absent.) Head: Atraumatic, Normocephalic Neck: Normal Inspection, Supple, Non-Tender, Full Range of Motion. No: Lymphadenopathy (L), Lymphadenopathy (R) Course - Vital Signs Last Recorded V/S: Last Vital Signs Temp 36.7 C 10/25/20 01:13 Pulse 85 02/13/20 01:13 Resp 16 02/13/20 01:13 BP 134/71 02/13/20 01:13 Pulse Ox 94 L 02/13/20 01:13 - Orders/Labs/Meds Meds: Medications Discontinued Medications Generic Name Dose Route Start Last Admin Trade Name Brian PRN Reason Stop Dose Admin Naproxen 500 mg 02/13/20 01:39 02/13/20 01:47 Naprosyn PO 02/13/20 01:40 500 mg ONETIME STA Administration Ondansetron HCl 4 mg 02/13/20 01:45 02/13/20 01:48 Zofran Odt PO 02/13/20 01:46 4 mg ONETIME ONE Administration Penicillin V Potassium 500 mg 02/13/20 01:38 02/13/20 01:47 Veetids PO 02/13/20 01:39 500 mg ONETIME STA Administration - Re-Assessments/Exams Free Text/Narrative Re-Assessment/Exam: 02/13/20 01:38 As above, the patient developed upper incisor pain, along with nausea and vomiting, Friday morning. On examination, tooth #7 is decayed to the gingiva, with associated gingival swelling. This is most likely cause of her discomfort. I will start her on penicillin, naproxen, and Zofran, and submit [facility]'s prescriptions for all 3. Most importantly, however, the patient needs to see a Dentist within the next 10 days. Departure - Departure Time of Disposition: :39 Disposition: Home, Self-Care 01 Condition: Good Clinical Impression: Dentalgia, Dental infection - Discharge Information *PRESCRIPTION DRUG MONITORING PROGRAM REVIEWED*: Not Applicable *COPY OF PRESCRIPTION DRUG MONITORING REPORT IN PATIENT RUBEN: Not Applicable Instructions: Dental Abscess, [id number], Acute Pain, Adult Referrals: PCP,None [Primary Care Provider] - Forms: ED Department Discharge Additional Instructions: You were seen in the emergency room after developing upper midline dental pain with nausea and vomiting on Friday morning. On examination, you have significant decay of teeth #3 and 4, with decay of tooth #7 down to the gumline. It is likely tooth #7 that is causing your most pain. There may be an infection at that site. You have been started on the antibiotic penicillin, along with the pain medicine naproxen and the anti-nausea medicine Zofran. Prescriptions for each of these have been provided to you. Take 1 tablet of penicillin every 6 hours, as prescribed. Finish the entire prescription unless told otherwise by a dentist. Take 1 tablet of naproxen every 12 hours, with food, as needed for discomfort. You may dissolve 1 tablet of Zofran on your tongue up to every 8 hours, as needed for nausea/vomiting. As discussed, it is very important that you follow-up with a dentist. This problem will not resolve itself with medicines. If any other problems, please do not hesitate to return to the ER. Sepsis Event Note (ED) - Evaluation Sepsis Screening Result: No Definite Risk - Focused Exam Vital Signs: Vital Signs Temp Pulse Resp BP Pulse Ox 02/13/20 01:13 36.7 C 85 16 134/71 94 L
[2020-02-13] MEDS ORDERED: Ondansetron 4 MG Tab.DIS PO ONE (01:45)
== END 2020-02-13 02:16 | disposition home or self-care (01) ==
LOC: JD.ED 01:04
DX: K04.7 Periapical abscess without sinus (principal); K02.9 Dental caries, unspecified; R11.2 Nausea with vomiting, unspecified; F17.210 Nicotine dependence, cigarettes, uncomplicated; Z91.040 Latex allergy status; Z91.048 Other nonmedicinal substance allergy status
CPT/HCPCS: 99282; A9270; 99283